=== PATIENT | male | born 1950 | race Caucasian/White ===

== ENCOUNTER → 2021-12-02 15:24 | Outpatient (BNVA) | payer OTHER, SELFPAY | PROVIDERS: PCP Physician Assistant Medical; Visit Provider Surgery | DX: L72.0 Epidermal cyst (principal) | CPT/HCPCS: 99202 ==

== ENCOUNTER 2022-01-24 10:27 | Outpatient (REF) | payer OTHER, SELFPAY | END 2022-01-24 10:28 | disposition home or self-care (01) | LOC: HO.LAB 10:27 | PROVIDERS: PCP Physician Assistant Medical; Visit Provider Surgery | DX: L72.0 Epidermal cyst (principal) | CPT/HCPCS: 11402; 88304 ==

== ENCOUNTER → 2022-02-09 09:23 | Outpatient (BNVA) | payer OTHER, SELFPAY | PROVIDERS: PCP Physician Assistant Medical; Visit Provider Surgery | DX: Z09 Encounter for follow-up examination after completed treatment for conditions other than malignant neoplasm (principal); L72.0 Epidermal cyst | CPT/HCPCS: 99212 ==